=== PATIENT | male | born 1950 | race Caucasian/White ===

== ENCOUNTER 2023-08-25 23:56 | Observation (INO) | payer MEDICARE ==
[~2023-08-25] VITALS: Ht 180.3 cm; Wt 85.5 kg
[~2023-08-25 23:56] MED LIST: ALENDRONATE SODI5 MG PO; FLOMAX0.4 MG; LISINOPRIL30 MG PO; PRILOSEC 20MG20 MG PO; REVATIO20 MG; TAMIFLU 75MG75 MG PO
[2023-08-26] VITALS (7 sets, daily range): BP systolic 107–124; BP diastolic 66–72
[2023-08-26] MEDS ORDERED: FINASTERIDE5 M1 PO (00:38)
[2023-08-26] MEDS ORDERED: Acetaminophen 325 MG TAB PO ONE (00:45)
[2023-08-26] MEDS ORDERED: Ketorolac 30 MG/ML VIAL IM ONE (00:45)
--- NOTE | 2023-08-26 02:35 | NUR ---
Patient admitted via wheelchair observation with DX of self care deficit. Patient fell in [place] while [place] a ballgame injuring right shoulder. Reports he possibly had previous tear to right rotator cuff. Assisted mod 2 assist to the bathroom. Able to stand and move self to sink. Ambulates with mod assist using door and handle awkward and uses furniture for mobility. Rates his right shoulder pain following pain meds in the ED an 8/10 on pain scale but reports his mobility has improved. Rests back in bed and changes into hospital gown.
[2023-08-26] MEDS ORDERED: REVATIO20 MG PO (03:24)
[2023-08-26] MEDS ORDERED: PRILOSEC OTC20 MG PO (03:29)
[2023-08-26] MEDS ORDERED: FLOMAX0.4 MG PO (03:31)
[2023-08-26] MEDS ORDERED: VIT D3-VIT K21 EACH PO (03:34)
[2023-08-26] MEDS ORDERED: ALEVE220 M1 PO (03:37)
[2023-08-26] MEDS ORDERED: TYLENOL ARTHRI650 M2 PO (03:38)
[2023-08-26] MEDS ORDERED: ACETAMINOPHEN500 M5 PO (03:39)
[2023-08-26] MEDS ORDERED: TYLENOL PM EX-1 EACH PO (03:40)
[2023-08-26] MEDS ORDERED: LISINOPRIL10 MG PO (04:22)
[2023-08-26 05:19] LABS: URINE APPEARANCE CLEAR (CLEAR); URINE COLOR YELLOW (YELLOW)
[2023-08-26 05:20] LABS: PH-URINE 5.5 (5.0 - 8.0); URINE BILIRUBIN NEGATIVE (NEGATIVE); URINE BLOOD NEGATIVE (NEGATIVE); URINE GLUCOSE NEGATIVE (NEGATIVE); URINE KETONE NEGATIVE (NEGATIVE); URINE LEUKOCYTE ESTERASE NEGATIVE (NEGATIVE); URINE NITRATE NEGATIVE (NEGATIVE); URINE PROTEIN(semi-quant) NEGATIVE (NEGATIVE)
[2023-08-26 05:22] LABS: URINE MUCUS PRESENT (NOT PRESENT); URINE WBC 0-1 /hpf (0-3)
[2023-08-26] MEDS ORDERED: Ketorolac 30 MG/ML VIAL IV SCH ×2 (06:51→09:00)
[2023-08-26 07:39] LABS: BASO # 0.03 K/mm3 (0.02-0.10); EOS # 0.11 K/mm3 (0.04-0.40); EOS % 1.4 % (0.0-4.0); HEMATOCRIT 38.3 % (42.0-52.0); LYMPH# 1.55 K/mm3 (1.50-4.00); MEAN CELL VOLUME 89 fl (78-100); MEAN CORPUSCULAR HEMOGLOBIN 30 pg (27-31); MEAN CORPUSCULAR HGB CONC 34 g/dL (33-37); MEAN PLATELET VOLUME 8.9 fl (7.4-10.4); MONO # 0.75 K/mm3 (0.20-0.80); NEU # 5.38 K/mm3 (1.40-6.50); PLATELET COUNT 206 K/mm3 (130-400); RED BLOOD COUNT 4.32 M/mm3 (4.20-5.60); RED CELL DISTRIBUTION WIDTH 13.4 % (11.5-14.5); WHITE BLOOD COUNT 7.8 K/mm3 (4.8-10.8)
[2023-08-26 07:45] LABS: CALCIUM 8.7 mg/dL (8.3-10.5)
[2023-08-26] MEDS ORDERED: Lisinopril 5 MG TAB PO SCH (09:00)
[2023-08-26] MEDS ORDERED: Finasteride 5 MG TAB PO SCH (09:00)
[2023-08-26] MEDS ORDERED: Acetaminophen 325 MG TAB PO SCH (09:00)
[2023-08-26] MEDS ORDERED: Acetaminophen 500 MG TAB PO PRN (13:00)
[2023-08-26] MEDS ORDERED: Naproxen 250 MG TAB PO PRN (13:00)
--- NOTE | 2023-08-26 19:15 | NUR ---
RECIEVED REPORT FROM SHELLY OVALLES
--- NOTE | 2023-08-26 22:15 | NUR ---
PT ALERT AND ORIENTED X4, PATIENT RESTING IN BED WITH LEG BRACE OFF. ASSESSMENT PERFORMED AND MEDICATIONS DELIVERED WITHOUT COMPLICATION. PT REPORTS INCREASED MOVEMENT IN THE SHOULDER, STILL EXPERIENCING SOME PAIN. PT REQUESTED SMALL SNACK, LONG CRACKERS PROVIDED. PT DENIES ANY FUTHER NEEDS AT THIS TIME. PT RESTING IN BED WITH CALL LIGHT IN REACH.
--- NOTE | 2023-08-27 00:59 | NUR ---
REPORT GIVEN TO CAMILA OVALLES
[2023-08-27 01:53] VITALS: BP 113/74; BP_SYST 118
[2023-08-27 05:50] VITALS: BP 135/79
[2023-08-27] MEDS ORDERED: Lisinopril 5 MG TAB PO SCH (09:00)
--- NOTE | 2023-08-27 09:02 | NUR ---
Pt. alert and oriented times 4. He is able to move all extremities. He has pain in Rt shoulder from fall on sat in [place]. He uses special crutches since he had polio to assist with walking. He also wears brace on LLE for support. He does report since the fall he has increased pain in rt shoulder but he feels like it has improved since yesterday. His abd is nontender. He does report he voids frequently but this is his normal. He is aware of MRI scheduled tomorrow.
--- NOTE | 2023-08-27 09:22 | NUR ---
Pt spouse here to pick him up. Pt ambulated to ER door at his request as he states it makes his arm hurt more getting up and down. He was educated not to push use of arm until we get results of MRI and he should call primary for the results. Pt. placed in vehicle with spouse without incident.
== END 2023-08-27 09:25 | disposition home or self-care (01) ==
LOC: ED 23:56 → MED/SURG 08-26 02:29
PROVIDERS: ADMIT Family Medicine
DX: M25.511 Pain in right shoulder (principal); R53.81 Other malaise; R53.1 Weakness; B91 Sequelae of poliomyelitis; W19.XXXA Unspecified fall, initial encounter; Y93.01 Activity, walking, marching and hiking; I10 Essential (primary) hypertension; K21.9 Gastro-esophageal reflux disease without esophagitis; Z79.899 Other long term (current) drug therapy; N40.1 Benign prostatic hyperplasia with lower urinary tract symptoms; R39.15 Urgency of urination; R35.0 Frequency of micturition
CPT/HCPCS: G0378; J1885

== ENCOUNTER → 2023-08-28 | Outpatient (CLI) | payer MEDICARE ==
[~2023-08-28] MED LIST changes: +ACETAMINOPHEN500 M5 PO; +ALEVE220 M1 PO; +FINASTERIDE5 M1 PO; +FLOMAX0.4 MG PO; +LISINOPRIL10 MG PO; +PRILOSEC OTC20 MG PO; +REVATIO20 MG PO; +TYLENOL ARTHRI650 M2 PO; +TYLENOL PM EX-1 EACH PO; +VIT D3-VIT K21 EACH PO
== END ==
LOC: RAD 14:42
DX: M75.121 Complete rotator cuff tear or rupture of right shoulder, not specified as traumatic (principal); M19.011 Primary osteoarthritis, right shoulder; S46.211A Strain of muscle, fascia and tendon of other parts of biceps, right arm, initial encounter; X58.XXXA Exposure to other specified factors, initial encounter

== ENCOUNTER 2023-11-06 11:27 | Inpatient (IN) | payer MEDICARE ==
[~2023-11-06] VITALS: Ht 180.3 cm; Wt 83.9 kg
[2023-11-06] MEDS ORDERED: VITAMIN D325 MC7 PO (13:47)
[2023-11-06] MEDS ORDERED: FOSAMAX 70MG TA70 MG PO (13:55)
[2023-11-06] MEDS ORDERED: ADCIRCA20 MG PO (14:10)
[2023-11-06] MEDS ORDERED: MELATIN 3 MG-11 TAB PO (14:11)
[2023-11-06] MEDS ORDERED: Ibuprofen 200 MG TAB PO PRN (17:15)
[2023-11-06] MEDS ORDERED: Polyethylene Glycol 3350 Powder 17 GM PACKET PO PRN (17:15)
[2023-11-06] MEDS ORDERED: Bisacodyl 5 MG TAB PO PRN (17:15)
[2023-11-06 17:26] VITALS: BP 111/70
[2023-11-06] MEDS ORDERED: Acetaminophen 325 MG TAB PO PRN (17:30)
[2023-11-06] MEDS ORDERED: Docusate Sodium 100 MG CAP PO PRN (17:30)
[2023-11-06] MEDS ORDERED: Alendronate 70 MG TAB PO SCH (17:30)
[2023-11-06 18:24] VITALS: BP 111/70
[2023-11-06] MEDS ORDERED: Melatonin 3 MG TAB PO SCH (21:00)
[2023-11-06] MEDS ORDERED: Finasteride 5 MG TAB PO SCH (21:00)
[2023-11-06 23:30] LABS: URINE APPEARANCE CLEAR (CLEAR); URINE BILIRUBIN NEGATIVE (NEGATIVE); URINE BLOOD NEGATIVE (NEGATIVE); URINE COLOR YELLOW (YELLOW); URINE GLUCOSE NEGATIVE (NEGATIVE); URINE KETONE NEGATIVE (NEGATIVE); URINE LEUKOCYTE ESTERASE NEGATIVE (NEGATIVE); URINE NITRATE NEGATIVE (NEGATIVE); URINE PROTEIN(semi-quant) NEGATIVE (NEGATIVE); URINE WBC 0-1 /hpf (0-3)
[2023-11-07 05:38] VITALS: BP 113/71
[2023-11-07 06:04] LABS: BASO # 0.01 K/mm3 (0.02-0.10); EOS # 0.14 K/mm3 (0.04-0.40); EOS % 2.7 % (0.0-4.0); HEMATOCRIT 37.7 % (42.0-52.0); HEMOGLOBIN 12.1 g/dL (13.5-18.0); LYMPH# 1.55 K/mm3 (1.50-4.00); MEAN CELL VOLUME 94 fl (78-100); MEAN CORPUSCULAR HEMOGLOBIN 30 pg (27-31); MEAN CORPUSCULAR HGB CONC 32 g/dL (33-37); MEAN PLATELET VOLUME 9.2 fl (7.4-10.4); MONO # 0.46 K/mm3 (0.20-0.80); NEU # 3.03 K/mm3 (1.40-6.50); PLATELET COUNT 235 K/mm3 (130-400); RED BLOOD COUNT 4.02 M/mm3 (4.20-5.60); RED CELL DISTRIBUTION WIDTH 13.5 % (11.5-14.5); WHITE BLOOD COUNT 5.2 K/mm3 (4.8-10.8)
[2023-11-07 06:18] LABS: ALBUMIN 3.4 g/dL (3.4-4.8)
[2023-11-07 06:20] LABS: CALCIUM 8.6 mg/dL (8.3-10.5)
[2023-11-07 06:21] LABS: TOTAL PROTEIN 5.9 g/dL (6.2-8.1)
[2023-11-07 07:06] LABS: TOTAL BILIRUBIN 0.6 mg/dL (0.2-1.2)
[2023-11-07] MEDS ORDERED: Lisinopril 5 MG TAB PO SCH (09:00)
[2023-11-07 17:11] VITALS: BP 106/60
[2023-11-08 05:17] VITALS: BP 103/67
[2023-11-08 16:18] VITALS: BP 101/59
[2023-11-09 06:05] VITALS: BP 102/64
[2023-11-09 17:50] VITALS: BP 110/61
[2023-11-10 05:57] VITALS: BP 106/65
[2023-11-10 17:13] VITALS: BP 115/65
[2023-11-11 06:11] VITALS: BP 110/73
[2023-11-11] MEDS ORDERED: Alendronate 70 MG TAB PO SCH (07:00)
[2023-11-11 17:10] VITALS: BP 125/69
[2023-11-12 05:44] VITALS: BP 108/64
[2023-11-12 17:17] VITALS: BP 114/69
[2023-11-13 05:47] VITALS: BP 105/65
[2023-11-13 17:20] VITALS: BP 106/61
[2023-11-13 17:21] VITALS: BP 106/61
[2023-11-14 06:13] LABS: BASO # 0.01 K/mm3 (0.02-0.10); EOS # 0.16 K/mm3 (0.04-0.40); EOS % 3.1 % (0.0-4.0); HEMATOCRIT 36.6 % (42.0-52.0); HEMOGLOBIN 12.2 g/dL (13.5-18.0); LYMPH# 1.49 K/mm3 (1.50-4.00); MEAN CELL VOLUME 91 fl (78-100); MEAN CORPUSCULAR HEMOGLOBIN 30 pg (27-31); MEAN CORPUSCULAR HGB CONC 33 g/dL (33-37); MONO # 0.52 K/mm3 (0.20-0.80); PLATELET COUNT 227 K/mm3 (130-400); RED BLOOD COUNT 4.04 M/mm3 (4.20-5.60); RED CELL DISTRIBUTION WIDTH 13.1 % (11.5-14.5); WHITE BLOOD COUNT 5.1 K/mm3 (4.8-10.8)
[2023-11-14 06:28] VITALS: BP 110/66
[2023-11-14 17:23] VITALS: BP 107/66
[2023-11-15 06:16] VITALS: BP 103/63
[2023-11-15 18:00] VITALS: BP 114/72
[2023-11-16 06:01] VITALS: BP 108/99
[2023-11-16 17:20] VITALS: BP 119/74
[2023-11-17 06:10] VITALS: BP 108/68
[2023-11-17 16:35] VITALS: BP 119/69
[2023-11-18 06:02] VITALS: BP 113/73
[2023-11-18 17:38] VITALS: BP 114/69
[2023-11-19 06:14] VITALS: BP 105/67
[2023-11-19 17:21] VITALS: BP 117/62
[2023-11-20 05:36] VITALS: BP 110/72
[2023-11-20 17:04] VITALS: BP 115/68
[2023-11-21 06:42] VITALS: BP 107/60
[2023-11-21 07:26] LABS: BASO # 0.01 K/mm3 (0.02-0.10); EOS # 0.17 K/mm3 (0.04-0.40); EOS % 3.5 % (0.0-4.0); HEMATOCRIT 36.8 % (42.0-52.0); LYMPH# 1.48 K/mm3 (1.50-4.00); MEAN CELL VOLUME 92 fl (78-100); MEAN CORPUSCULAR HEMOGLOBIN 30 pg (27-31); MEAN CORPUSCULAR HGB CONC 33 g/dL (33-37); MEAN PLATELET VOLUME 8.9 fl (7.4-10.4); MONO # 0.52 K/mm3 (0.20-0.80); NEU # 2.67 K/mm3 (1.40-6.50); PLATELET COUNT 196 K/mm3 (130-400); RED BLOOD COUNT 4.02 M/mm3 (4.20-5.60); RED CELL DISTRIBUTION WIDTH 13.4 % (11.5-14.5); WHITE BLOOD COUNT 4.9 K/mm3 (4.8-10.8)
[2023-11-21 07:35] LABS: ALBUMIN 3.3 g/dL (3.4-4.8)
[2023-11-21 07:36] LABS: CALCIUM 8.5 mg/dL (8.3-10.5)
[2023-11-21 07:38] LABS: TOTAL PROTEIN 5.7 g/dL (6.2-8.1)
[2023-11-21 07:39] LABS: TOTAL BILIRUBIN 0.4 mg/dL (0.2-1.2)
[2023-11-21 17:45] VITALS: BP 118/64
[2023-11-22 06:21] VITALS: BP 116/69
[2023-11-22 17:43] VITALS: BP 101/59
[2023-11-23 06:13] VITALS: BP 115/65
[2023-11-23 17:36] VITALS: BP 104/64
[2023-11-24 06:26] VITALS: BP 117/69
[2023-11-24 18:15] VITALS: BP 112/67
[2023-11-25 06:32] VITALS: BP 121/76
[2023-11-25 18:11] VITALS: BP 120/69
[2023-11-26 06:13] VITALS: BP 115/69
[2023-11-26 17:15] VITALS: BP 123/72
[2023-11-27 05:55] VITALS: BP 116/72
[2023-11-27] MEDS ORDERED: Cholecalciferol (Vit D3) 25 MCG (1,000 Units) TAB PO SCH (09:00)
[2023-11-27 18:22] VITALS: BP 120/74
[2023-11-28 06:00] VITALS: BP 106/65
[2023-11-28 17:06] VITALS: BP 132/80
[2023-11-29 06:12] VITALS: BP 120/70
[2023-11-29 17:15] VITALS: BP 107/44
[2023-11-30 06:14] VITALS: BP 114/71
[2023-11-30 17:10] VITALS: BP 115/69
[2023-12-01 06:10] VITALS: BP 120/73
[2023-12-01 17:07] VITALS: BP 109/70
[2023-12-02 06:07] VITALS: BP 118/74
[2023-12-02 17:03] VITALS: BP 118/72
[2023-12-03 05:52] VITALS: BP 109/64
[2023-12-03 17:55] VITALS: BP 115/72
[2023-12-04 06:29] VITALS: BP 106/63
[2023-12-04 17:11] VITALS: BP 103/65
[2023-12-05 05:45] VITALS: BP 110/69
[2023-12-05 18:06] VITALS: BP 120/67
[2023-12-06 06:01] VITALS: BP 108/68
[2023-12-06 17:30] VITALS: BP 119/71
[2023-12-06 20:22] VITALS: BP 111/64
[2023-12-07 08:33] VITALS: BP 111/58
[2023-12-07 19:00] VITALS: BP 111/67
[2023-12-08 07:10] VITALS: BP 119/71
[2023-12-08 19:49] VITALS: BP 114/68
[2023-12-09 07:15] VITALS: BP 99/60
[2023-12-09 19:00] VITALS: BP 135/72
[2023-12-10 08:24] VITALS: BP 111/70
[2023-12-10 19:47] VITALS: BP 108/69
[2023-12-11 07:05] VITALS: BP 122/68
[2023-12-11 19:30] VITALS: BP 120/69
[2023-12-12 07:00] VITALS: BP 108/63
[2023-12-12 19:28] VITALS: BP 120/75
[2023-12-13 07:00] VITALS: BP 114/70
[2023-12-13 19:30] VITALS: BP 103/52
[2023-12-14 07:52] VITALS: BP 112/63
[2023-12-14 21:03] VITALS: BP 108/71
[2023-12-15 08:14] VITALS: BP 108/66
[2023-12-15 19:00] VITALS: BP 106/66
[2023-12-16 07:39] VITALS: BP 115/61
[2023-12-16 19:39] VITALS: BP 115/70
[2023-12-17 08:19] VITALS: BP 129/81
[2023-12-17 19:44] VITALS: BP 105/67
[2023-12-18 08:31] VITALS: BP 112/66
[2023-12-18 19:37] VITALS: BP 120/71
[2023-12-19 07:00] VITALS: BP 117/69
== END 2023-12-19 13:16 | disposition home or self-care (01) | DRG 561 ==
LOC: MED/SURG 11:27
PROVIDERS: ADMIT Family Medicine
DX: Z47.89 Encounter for other orthopedic aftercare (principal); I10 Essential (primary) hypertension; N40.0 Benign prostatic hyperplasia without lower urinary tract symptoms; F39 Unspecified mood [affective] disorder; K21.9 Gastro-esophageal reflux disease without esophagitis; R53.81 Other malaise; Z88.0 Allergy status to penicillin; Z86.12 Personal history of poliomyelitis
CPT/HCPCS: G0283-GP